=== PATIENT | female | born 2000 | race Two or more races ===

== ENCOUNTER 2022-01-04 14:53 | Emergency (ER) | payer OTHER ==
[~2022-01-04] VITALS: Ht 157.5 cm; Wt 72.6 kg
--- NOTE | 2022-01-04 15:08 | NUR ---
[email or web address], medical screening exam in progress
[2022-01-04] MEDS ORDERED: METHOCARBAMOL 500 MG TABLET PO ONE (15:15)
[2022-01-04] MEDS ORDERED: ACETAMINOPHEN ES 500 MG TABLET PO ONE (15:15)
[2022-01-04] MEDS ORDERED: LIDOCAINE 5% PATCH TD ONE ×2 (15:15→15:16)
[2022-01-04] MEDS ORDERED: ACETAMINOPHEN ES 500 MG TABLET ONE (15:17)
[2022-01-04] MEDS ORDERED: METHOCARBAMOL 500 MG TABLET ONE (15:17)
--- NOTE | 2022-01-04 18:06 | NUR ---
Patient discharged to home in stable condition with brisk steady gait. Written and verbal after care instructions given. Patient verbalized understanding and compliance of instructions. Stressed follow up primary doctor and Workman's compensation provider or return to ER for worsening s/s.
[2022-01-04 18:07] VITALS: BP 120/69
== END 2022-01-04 18:07 | disposition home or self-care (01) ==
LOC: ER 15:02
DX: S09.90XA Unspecified injury of head, initial encounter (principal); R51.9 Headache, unspecified; M54.2 Cervicalgia; W20.8XXA Other cause of strike by thrown, projected or falling object, initial encounter; Y93.89 Activity, other specified; Y92.511 Restaurant or cafe as the place of occurrence of the external cause; Y99.0 Civilian activity done for income or pay
CPT/HCPCS: 70450; A4663; A9150